=== PATIENT | male | born 1995 ===

== ENCOUNTER 2018-04-20 03:26 | Emergency (ER) | payer SELFPAY ==
[2018-04-20] MEDS ORDERED: NS 0.9% 1000 ML** 1,000 ML IV ONE (04:06)
[2018-04-20] MEDS ORDERED: LORazepam INJ* 2 MG/ML 1 ML VIAL IV PUSH ONE (04:07)
--- NOTE | 2018-04-20 04:20 | ED ---
Syncope/Near Syncope - HPI Summary HPI Summary: This patient is a 22 year old M brought in by ambulance to [facility] with a chief complaint of unwitnessed syncopal episode since 03:00. Prior to the syncopal episode, the patient notes he experienced sudden onset dizziness, palpitations and numbness of his entire body. The patient notes that his symptoms began when he was studying on his couch. He states he fell onto his couch and describes the syncopal episode as feeling as through he was having dreams but was conscious the whole time. The patient reports that his symptoms have resolved [employer] [employer] at [facility]. The patient rates the pain 0/10 in severity. Symptoms aggravated by recent stress. Symptoms alleviated by spontaneous resolution. Patient reports severe headaches since 1 week ago. Patient denies incontinence. The patient notes that he has been drinking a lot of caffeine every day and hasnt been sleeping much (only 1-2 hours per night) due to several recent and upcoming exams. He also notes he fell on his back a few days ago. - History Of Current Complaint Chief Complaint: EDDizziness Hx Obtained From: Patient Onset/Duration: Sudden Onset, Lasting Minutes Timing: Minutes Context: Unwitnessed Activity At Onset: At Rest Associated Head Trauma: No Aggravating Factor(s): Other - recent stress Alleviating Factor(s): Spontaneous Resolution Associated Signs And Symptoms: Dizzy, Headache, Numbness, Palpitations - Allergies/Home Medications Allergies/Adverse Reactions: Allergies Allergy/AdvReac Type Severity Reaction Status Date / Time cefprozil [From Cefzil] Allergy Unknown Verified 04/20/18 03:43 Reaction Details Home Medications: Home Medications NK [No Home Medications Reported] 04/20/18 [History Confirmed 04/20/18] PMH/Surg Hx/FS Hx/Imm Hx Endocrine/Hematology History: Denies: Hx Diabetes Opthamlomology History: Denies: Hx Legally Blind EENT History: Denies: Hx Deafness - Surgical History Surgery Procedure, Year, and Place: none Infectious Disease History: No Infectious Disease History: Denies: Traveled Outside the [place] in Last 30 Days - Family History Known Family History: Negative: Diabetes - Social History Occupation: Student Alcohol Use: Occasionally Substance Use Type: Reports: Marijuana Smoking Status (MU): Never Smoked Tobacco Review of Systems Negative: Epistaxis Positive: Palpitations Negative: incontinence Neurological: Other - dizziness Positive: Headache, Numbness, Syncope Positive: Anxious All Other Systems Reviewed And Are Negative: Yes Physical Exam - Summary Physical Exam Summary: VITAL SIGNS: Reviewed. GENERAL: Patient is a well-developed and nourished MALE who is lying comfortable in the stretcher. Patient is not in any acute respiratory distress. HEAD AND FACE: No signs of trauma. No ecchymosis, hematomas or skull depressions. No sinus tenderness. EYES: PERRLA, EOMI x 2, No injected conjunctiva, no nystagmus. EARS: Hearing grossly intact. Ear canals and tympanic membranes are within normal limits. MOUTH: Oropharynx within normal limits. NECK: Supple, trachea is midline, no adenopathy, no JVD, no carotid bruit, no c- spine tenderness, neck with full ROM. CHEST: Symmetric, no tenderness at palpation LUNGS: Clear to auscultation bilaterally. No wheezing or crackles. CVS: Regular rate and rhythm, S1 and S2 present, no murmurs or gallops appreciated. ABDOMEN: Soft, non-tender. No signs of distention. No rebound no guarding, and no masses palpated. Bowel sounds are normal. EXTREMITIES: FROM in all major joints, no edema, no cyanosis or clubbing. NEURO: Alert and oriented x 3. No acute neurological deficits. Speech is normal and follows commands. GCS 15 SKIN: Dry and warm PSYCH: Patient seems anxious Triage Information Reviewed: Yes Vital Signs On Initial Exam: Initial Vitals Pulse Resp Pulse Ox 74 17 98 04/20/18 03:36 04/20/18 03:36 04/20/18 03:36 Vital Signs Reviewed: Yes Diagnostics - Vital Signs Vital Signs Temp Pulse Resp BP Pulse Ox 04/20/18 03:38 98.3 F 72 16 131/81 99 04/20/18 03:37 79 12 131/81 99 04/20/18 03:36 74 17 98 - Laboratory Result Diagrams: 04/20/18 04:16 04/20/18 04:16 Lab Statement: Any lab studies that have been ordered have been reviewed, and results considered in the medical decision making process. - CT CT Brain CT Interpretation Completed By: Radiologist Summary of CT Findings: Impression: negative noncontrast head CT. Dr. Polo has reviewed this report - EKG 04:32 Cardiac Rate: NL - at 78 bpm EKG Rhythm: Sinus Rhythm ST Segment: Normal Ectopy: None Summary of EKG Findings: NSR at 78 bpm with nml axis, nml intervals, and no ischemic changes. Course/Dx Course Of Treatment: This patient is a 22 year old M brought in by ambulance to [facility] with a chief complaint of unwitnessed syncopal episode since 03:00. Prior to the syncopal episode, the patient notes he experienced sudden onset dizziness, palpitations and numbness of his entire body. The patient reports that his symptoms have resolved [employer] at [facility]. The patient rates the pain 0/10 in severity. Patient reports severe headaches since 1 week ago. The patient notes that he has been drinking a lot of caffeine every day and hasnt been sleeping much (only 1-2 hours per night) due to several recent and upcoming exams. Physical exam reveals anxiety. An EKG reveals NSR at 78 bpm with nml axis , nml intervals, and no ischemic changes. CT Brain reveals, per radiologist, negative noncontrast head CT. ED physician has reviewed this radiology report. Bloodwork and UA obtained. In the ED course the patient was given IV fluids and Ativan. Dx anxiety. Patient will be discharged home with follow up from PCP. The patient is agreeable with this plan. - Diagnoses Provider Diagnoses: Anxiety Discharge - Sign-Out/Discharge Documenting (check all that apply): Patient Departure - discharge home Patient Received Moderate/Deep Sedation with Procedure: No - Discharge Plan Condition: Stable Disposition: HOME Patient Education Materials: Anxiety (ED) Referrals: Amira Arango THIRD OFFICER [Primary Care Provider] - 1 Day Additional Instructions: Follow up with your primary care physician in 1-2 days. Return to the emergency department with any new or worsening symptoms. - Attestation Statements Document Initiated by Scribe: Yes Documenting Scribe: Wendie Hull Provider For Whom Scribe is Documenting (Include Credential): Dexter Polo MD Scribe Attestation: Wendie Prado scribed for Dexter Polo MD on 04/20/18 at 0536. Status of Scribe Document: Ready
[2018-04-20 04:28] LABS: ABS Basophils 0.1 10^3/ul (0-0.2); ABS Eosinophils 0.4 10^3/ul (0-0.6); ABS Lymphocytes 2.7 10^3/ul (1.0-4.8); ABS Monocytes 0.6 10^3/ul (0-0.8); ABS Neutrophils 4.9 10^3/ul (1.5-7.7); ABS Nucleated RBC 0 10^3/ul; Eosinophil % 4.7 %; Hematocrit 44 % (42-52); Hemoglobin 15.2 g/dl (14.0-18.0); Mean Corpuscular HGB Conc 35 g/dl (31-36); Mean Corpuscular Hemoglobin 28 pg (27-31); Mean Corpuscular Volume 81 fL (80-94); Mean Platelet Volume 8.4 fL (7.4-10.4); Nucleated Red Blood Cells % 0.1; Platelet Count 217 10^3/ul (150-450); Red Blood Count 5.39 10^6/ul (4.00-5.40); Red Cell Distribution Width 12 % (10.5-15); White Blood Count 8.6 10^3/ul (3.5-10.8)
[2018-04-20 04:42] LABS: Albumin 4.6 g/dL (3.2-5.2); Albumin/Globulin Ratio 1.9 (1-3); BUN/Creatinine Ratio 15.2 (8-20); Calcium 9.7 mg/dL (8.6-10.3); EGFR African American 126.9 (>60); EGFR Non-African American 104.9 (>60); Globulin 2.4 g/dL (2-4); Potassium 3.8 mmol/L (3.5-5.0); Total Bilirubin 0.6 mg/dL (0.2-1.0)
[2018-04-20 04:57] LABS: TSH (Thyroid Stimulating Horm) 2.92 mcIU/mL (0.34-5.60)
[2018-04-20 05:43] VITALS: BP 106/57
== END 2018-04-20 05:47 | disposition home or self-care (01) ==
LOC: ED 03:26
DX: F41.9 Anxiety disorder, unspecified (principal); R42 Dizziness and giddiness; R51 Headache; R00.2 Palpitations; R55 Syncope and collapse
CPT/HCPCS: 36415; 70450; 80053; 83735; 84443; 85025; 93005; 96361; 96374; 99283; J2060